=== PATIENT | female | born 1970 | race Caucasian/White ===

== ENCOUNTER → 2018-05-09 | Outpatient (CLI) | payer OTHER ==
[~2018-05-09] MED LIST: ASPI-1471 PO; AUG500 PO; CHOL10005 PO; CHOL40003 PO; HYDR12.556 PO; LEVO50TA86 PO; LISI20TA29 PO; LISI5TAB25 PO; MAGN250T26 PO; MULT-1372 PO
== END ==
LOC: LAB 11:27
PROVIDERS: ATTEND Emergency Medicine
DX: E55.9 Vitamin D deficiency, unspecified (principal); R20.8 Other disturbances of skin sensation
CPT/HCPCS: 36415; 82306; 82607